=== PATIENT | female | born 1985 | race Hispanic/Latino ===

== ENCOUNTER 2016-11-08 07:22 | Day surgery (SDC) | payer BC ==
[2016-11-06 11:23] VITALS: BMI 21.4
[~2016-11-08 07:22] MED LIST: Bupivacaine HCl 0.5% PF (10 ml) Inj ONE; Iohexol 240 (50 ml) ONE; Lidocaine 2% Inj (20ml) ONE; MethylPREDNISolone Depo 40 mg/ml Inj ONE
[2016-11-08 07:53] VITALS: O2SAT 100
--- NOTE | 2016-11-08 07:57 | CP.SDSHP ---
Same Day Surgery H & P - History Proposed Procedure: Left hip intraarticular injection Pre-Op Diagnosis: Left hip labral tear - Previous Medical/Surgical History Comments: no PMH/PSH - Allergies Allergies: Allergies No Known Allergies Allergy (Verified 11/06/16 11:24) - Physical Exam Vital Signs: Vital Signs 11/08/16 07:34 Temperature 97.9 F Pulse Rate 54 L Respiratory 15 Rate Blood Pressure 126/70 O2 Sat by Pulse 100 Oximetry Mental Status: Alert & Oriented x3 Heart: WNL Lungs: WNL GI: WNL - {Optional Preform as Required} Ortho: Other (calves soft NT neg homans +DP/PT pulses, sensation intact) Other Pertinent Findings: Imaging at outside facility - Impression Impression: 31F with left hip labral tear for injection Pt. Evaluated Today:Candidate for Anesthesia & Procedure: Yes - Date & Time Date: 11/08/16 Time: 07:57 Short Stay Discharge - Short Stay Discharge Admitting Diagnosis/Reason for Visit: OTHER ARTICULAR CARTILAGE DISORDERS, LEFT HIP,OTHE Disposition: HOME/ ROUTINE
[2016-11-08] MEDS ORDERED: Oxycodone/Acetaminophen 5/325 mg Tab PO PRN (08:45)
[2016-11-08 08:55] VITALS: BP 126/79; PULSE 59; RESP 16; TEMP 98
--- NOTE | 2016-11-08 16:10 | RAD ---
PROCEDURE: Intraoperative fluoroscopy HISTORY: LT. LABRAL TEAR COMPARISON: None available TECHNIQUE: Intraoperative fluoroscopy was provided for left hip injection. FINDINGS: Total time of fluoroscopy was 21.9 seconds. 5 fluoroscopic spot films are submitted. Films are on file for review. IMPRESSION: Fluoroscopy provided.
--- NOTE | 2016-12-12 07:39 | OP ---
PROCEDURE DATE: 11/08/2016 PREOPERATIVE DIAGNOSIS: 1. Left hip labral tear. 2. Femoral acetabular impingement/cam lesion. POSTOPERATIVE DIAGNOSIS: 1. Left hip labral tear. 2. Femoral acetabular impingement/cam lesion. PROCEDURE: Left hip injection under fluoroscopic guidance with lidocaine/Marcaine/Depo-Medrol. SURGEON: Moriah Garza MD. PATTERN ROOM ATTENDANT: None. ANESTHESIA: None, just local anesthetic. COMPLICATIONS: None. SPECIMENS: None. DRAINS: None. DISPOSITION: The patient transferred to PACU in stable condition and tolerated the procedure well. INDICATIONS FOR PROCEDURE: The patient is a 31-year-old female with no significant past medical hist ory who presented to the office for the first time under my care on 10/08/2016 with left hip pain loc alized to the groin for 6 months. The patient is an avid runner and stated that when she was running She started to develop groin pain and clicking. She was referred for an MRI done on 10/22/2016 as a n MR arthrogram which was read as: 1. Small scarred labrum with fraying at its anterior margin. 2. Elevated alpha angle. 3. Correlation for femoral acetabular impingement symptomology is suggested. We started to discuss treatment options as she has been undergoing 6 months of physical therapy and a nti-inflammatory medication with no success or improvement in her pain. She has started to develop i nability to run longer distances and this has begun to affect her significantly as she is an avid run ner and truly enjoys this. We discussed treatment options which included arthroscopic labral repair and femoral osteoplasty as well as fluoroscopic-guided injection. The benefit of the fluoroscopic-gu ided injection is that we truly would obtained both a therapeutic and diagnostic value to the injecti on. This would confirm that the hip intraarticular is truly her pain generator and there is a chance that she may get enough therapeutic response from the injection that she does not require surgery. We discussed the risks, benefits, and alternatives to the left hip fluoroscopic-guided injection with the risks including, but not limited to, infection, neurovascular damage, allergic reactions, synovi tis, development of chronic pain and disability, development of blood clots including DVT and PE, ane sthesia reactions from local anesthetic. After answering all of her questions, she stated that she u nderstood the risks and wished to proceed with the procedure. The procedure was scheduled. She watc hed the surgical animation videos and diagnosis animation videos and a good understanding of the diag nosis as well as the procedure to be done. She had a referral to start physical therapy the next day after the injection as well. PROCEDURE IN DETAIL: The patient was identified in the preoperative holding area and the left hip wa s marked for surgery. Once again, as described above, the risks, benefits, and alternatives to the p rocedure were discussed at length with the patient and informed consent was obtained. The left hip w as marked for surgery. The patient was then brought to the operating room and placed in a well-padde d operating room table that was radiolucent. All bony prominences and superficial neurovascular stru ctures were well padded. A final timeout was done with the surgeon, anesthesia staff, and OR staff; all in agreement with the patient, procedure being done, and extremity being operated on. As stated before, the patient did not wish to go under sedation. The left hip was prepped and draped in standa rd sterile fashion. The ASIS was palpated and identified and marked. The greater trochanter was pal pated and identified and marked. The intersecting line was drawn between the ASIS and the greater tr ochanter. Care was taken to stay on the upper outer quadrant to ensure no damage to the neurovascula r structures. With the help of fluoroscopic imaging, optimal entry point for the spinal needle was i dentified at the level of the skin, and 10 mL of 2% lidocaine without epinephrine preservative-free w ere used to infiltrate the skin and provide a local anesthetic. Once the local anesthetic took effec t, the spinal needle was advanced through the skin down to the femoral head and neck junction under f luoroscopic confirmation of imaging. Once the needle was confirmed to be in optimal position at the superior femoral head and neck junction, the hip joint intra-articular position of the needle was con firmed with application of contrast in the form of an arthrogram. 2 mL of a 1:1 mixture of radiopaqu e contrast and 2% lidocaine without epinephrine preservative-free were injected and a positive rings sign developed confirming the intra-articular position of the needle. At that point in time, excess contrast was aspirated and the final injection was delivered. The total injection contents was 5 mL consisting of 2 mL of 2% lidocaine without epinephrine preservative-free and 2 mL of 0.5% Marcaine wi thout epinephrine preservative-free, as well as 1 mL of 40 mg Depo-Medrol. The injection contents, a total 5 mL, were delivered in its entirety and the spinal needle was removed. Sterile dressings wer e applied and the patient was then taken to the PACU in stable condition. Physical examination before the injection and after the injection was distinctly different as the loc al anesthetic and intraarticular anesthetic took effect. Preinjection, her range of motion was limit ed to 100 degrees forward flexion and 5 degrees internal rotation limited by pain. After the injecti on, the patient had full range of motion with 110-120 degrees forward flexion and 10-15 degrees of in ternal rotation without difficulty. The patient reported that she had no groin pain with range of mo tion and was happy with the outcome of the injection. DISPOSITION: The patient will be discharged home. She has been given a prescription for Percocet in case she has a flareup from the injection after the local anesthetic wears off. She was instructed to take the day off from work. She will follow up in the office at [facility] within 2 wee ks and already has her postoperative appointment set up. She already has her referral for physical t herapy. She will contact me directly with any questions or concerns. Moriah Garza MD cc: [id number] TT: 12/12/2016 07:38:34 [email or web address]
== END 2016-11-08 09:04 | disposition home or self-care (01) ==
LOC: C.SDS 07:22
PROVIDERS: ATTEND Student in an Organized Health Care Education/Training Program
DX: S73.192A Other sprain of left hip, initial encounter (principal); M24.152 Other articular cartilage disorders, left hip; M25.852 Other specified joint disorders, left hip; X58.XXXA Exposure to other specified factors, initial encounter